=== PATIENT | female | born 1990 | race Caucasian/White ===

== ENCOUNTER 2018-09-11 14:47 | Emergency (ER) | payer OTHER ==
[~2018-09-11] VITALS: Ht 162.6 cm; Wt 90.3 kg
[~2018-09-11 14:47] MED LIST: ALDACTONE50 MG PO; AMBIEN 5 MG TABL5 M1 PO; CARAFATE1 GM/10 ML PO; CIPRO500 MG PO; FLAGYL500 MG PO; IBUPROFEN 200200 M1 PO; KLONOPIN1 MG PO; PAXIL10 MG PO; PERCOCET 10-321 EACH PO; PERCOCET 5-3251 EACH PO; PHENTERMINE HCL15 MG PO; PREVACID30 MG PO; TESSALON PERLE100 MG PO; ULTRAM 50MG TAB50 MG PO; VITAMIN D1000 UNI1 PO; VYVANSE50 MG PO; paxil PO
[2018-09-11] MEDS ORDERED: XANAX 0.5 MG0.5 MG PO (14:57)
[2018-09-11] MEDS ORDERED: CORTEF 20 MG TA20 MG PO (14:58)
[2018-09-11 16:10] VITALS: BP 145/92
== END 2018-09-11 16:12 | disposition home or self-care (01) ==
LOC: M.ERS 14:47
DX: G89.18 Other acute postprocedural pain (principal); M32.9 Systemic lupus erythematosus, unspecified; Z90.49 Acquired absence of other specified parts of digestive tract; Z90.710 Acquired absence of both cervix and uterus; Z88.5 Allergy status to narcotic agent; Z98.890 Other specified postprocedural states